=== PATIENT | female | born 2000 | race Two or more races ===

== ENCOUNTER 2021-11-30 02:04 | Emergency (ER) | payer MEDICAID, OTHER ==
[~2021-11-30] VITALS: Ht 162.6 cm; Wt 77.6 kg
[2021-11-30] MEDS ORDERED: HYDROcodone-ACET 10/325MG TAB PO ONE (05:00)
[2021-11-30 06:10] VITALS: BP 123/78
== END 2021-11-30 06:19 | disposition home or self-care (01) ==
LOC: ER 02:08
DX: K02.9 Dental caries, unspecified (principal)